=== PATIENT | male | born 1995 | race Caucasian/White ===

== ENCOUNTER 2023-11-20 15:21 | Emergency (ER) | payer SELFPAY ==
[2023-11-20] MEDS: Diphtheria,Pertussis(Acell),Tetanus Vaccine 0.5 ML Syringe IM ONE (18:12)
[2023-11-20] MEDS: Acetaminophen 500 MG Tab PO ONE (18:18)
== END 2023-11-20 19:37 | disposition home or self-care (01) ==
LOC: MW.ED 15:21
DX: S02.2XXA Fracture of nasal bones, initial encounter for closed fracture (principal); S01.01XA Laceration without foreign body of scalp, initial encounter; S09.90XA Unspecified injury of head, initial encounter; Z23 Encounter for immunization; Z79.899 Other long term (current) drug therapy; Y04.0XXA Assault by unarmed brawl or fight, initial encounter
CPT/HCPCS: 12002; 70450; 70486; 90471; 90715; 99283; A9270